=== PATIENT | female | born 1965 | race Caucasian/White ===

== ENCOUNTER 2018-10-22 10:13 | Emergency (ER) | payer MEDICAID ==
[~2018-10-22] VITALS: Ht 162.6 cm; Wt 99.2 kg
[2018-10-22 10:18] VITALS: BP 147/72; PULSE 68; RESP 18; Ht 162.6 cm; Wt 99.2 kg
[2018-10-22] MEDS ORDERED: IBUP800T48 PO (13:10)
--- NOTE | 2018-10-22 15:49 | ERD ---
ER Documentation Chief Complaint Chief Complaint left arm pain x 1 week post fall HPI 53-year-old female presenting with pain to left elbow times 1 week. She states 1 week ago she fell and she sustained pain to her elbow. She states that she was moving and massaging it and that she felt the area popped back into place. She denies any numbness or tingling. She is right-hand dominant. Has not taken medications for pain. Was concerned because she still had some residual pain and she wanted to ensure there is no continued abnormality. Denies other medical problems. NKDA. Surgical history denies. Social history denies ROS All systems reviewed and are negative except as per history of present illness. Medications Home Meds Active Scripts Ibuprofen* (Motrin*) 800 Mg Tab, 800 MG PO Q6, #30 TAB Prov:ROLAND WHITTINGTON PA-C 10/22/18 PMhx/Soc History of Surgery: Yes (caesarian section ; hemorrhoidal surgery) Hx Alcohol Use: Yes (socially) Hx Substance Use: No Hx Tobacco Use: No Smoking Status: Never smoker FmHx Family History: No diabetes, No coronary disease, No other Physical Exam Vitals Vital Signs Date Temp Pulse Resp B/P (MAP) Pulse Ox O2 O2 Flow FiO2 Time Delivery Rate 10/22/18 97.6 68 18 147/72 97 10:18 (97) Physical Exam GENERAL: The patient is well-appearing, well-nourished, in no acute distress CHEST: Clear to auscultation bilaterally. There are no rales, wheezes or rhonchi. HEART: Regular rate and rhythm. No murmurs, clicks, rubs or gallops. EXTREMITIES: Mild tenderness to palpation to the left elbow with no obvious deformity. normal flexion and extension. Compartments soft. NEUROLOGIC: Alert and oriented. Cranial nerves II through XII intact. Motor strength in all 4 extremities with 5 out of 5 strength. Sensation grossly intact. Normal speech and gait. Babinski negative. DTR 2+ throughout. SKIN: There is no apparent rash or petechiae. The skin is warm and dry. Procedures/MDM DIAGNOSTIC IMAGING REPORT Patient: HOA NEELY I : 1965 Age: 53 Sex: F MR #: [id number] DOS: 10/22/18 1213 Ordering MD: MAX WHITTINGTON PA-C Location: [facility] Room/Bed: PROCEDURE: XR Elbow. CLINICAL INDICATION: Pain TECHNIQUE: AP, lateral and oblique views of the left elbow performed. COMPARISON: None. FINDINGS: There is normal mineralization and alignment. No acute fracture or osseous lesion is identified. There is no significant joint space narrowing. The soft tissues are unremarkable. RPTAT: AA IMPRESSION: Unremarkable examination. MDM: 53-year-old female presenting with left elbow pain. Patient's x-rays within normal limits. Patient's exam is non-concerning. Patient is discharged stricter precautions and told to follow-up with primary care within 1-2 days for close evaluation. Patient is told symptoms change or worsen to return immediately to the ER. All questions answered at discharge Departure Diagnosis: Primary Impression: Pain of left arm Condition: Stable Patient Instructions: Contusion, Upper Extremity Referrals: [facility] YOU HAVE RECEIVED A MEDICAL SCREENING EXAM AND THE RESULTS INDICATE THAT YOU DO NOT HAVE A CONDITION THAT REQUIRES URGENT TREATMENT IN THE EMERGENCY DEPARTMENT. FURTHER EVALUATION AND TREATMENT OF YOUR CONDITION CAN WAIT UNTIL YOU ARE SEEN IN YOUR DOCTORS OFFICE WITHIN THE NEXT 1-2 DAYS. IT IS YOUR RESPONSIBILITY TO MAKE AN APPOINTMENT FOR FOLOW-UP CARE. IF YOU HAVE A PRIMARY DOCTOR --you should call your primary doctor and schedule an appointment IF YOU DO NOT HAVE A PRIMARY DOCTOR YOU CAN CALL OUR PHYSICIAN REFERRAL HOTLINE AT IF YOU CAN NOT AFFORD TO SEE A PHYSICIAN YOU CAN CHOSE FROM THE FOLLOWING [facility] [address] [facility]. [facility] [address] [facility] [email or web address] [address] [facility] [facility] [address] [facility]. [facility] [address] [facility]. [facility] [address] Additional Instructions: FOLLOW UP WITH YOUR PRIMARY CARE PHYSICIAN TOMORROW.Return to this facility if you are not improving as expected. ROLAND WHITTINGTON PA-C Oct 22, 2018 15:49
== END 2018-10-22 13:28 | disposition home or self-care (01) ==
LOC: FTE 10:13
DX: M79.602 Pain in left arm (principal)